=== PATIENT | male | born 1985 | race Caucasian/White ===

== ENCOUNTER 2021-07-19 04:35 | Emergency (ER) | payer OTHER ==
[~2021-07-19] VITALS: Ht 167.6 cm; Wt 74.8 kg
[2021-07-19] MEDS ORDERED: IBU-200200 MG PO (04:49)
[2021-07-19] MEDS ORDERED: CEPHALEXIN500 MG PO (05:40)
[2021-07-19 06:05] VITALS: BP 144/85
== END 2021-07-19 06:05 | disposition home or self-care (01) ==
LOC: ER 04:35
DX: S01.01XA Laceration without foreign body of scalp, initial encounter (principal); Z98.890 Other specified postprocedural states; W22.8XXA Striking against or struck by other objects, initial encounter; Y93.89 Activity, other specified; Y92.89 Other specified places as the place of occurrence of the external cause; Y99.8 Other external cause status